=== PATIENT | male | born 1980 | race Caucasian/White ===

== ENCOUNTER 2022-09-19 03:22 | Emergency (ER) | payer MEDICAID, SELFPAY ==
[2022-09-19 03:25] VITALS: BP 130/88; PULSE 76; RESP 18; TEMP 36.6; O2SAT 96; BMI 29.0
[2022-09-19 04:10] LABS: Color, Urine Yellow (Yellow); Glucose, Dipstick Normal (Normal); Ketone-Dipstick Negative (Negative); Leukocyte Esterase-Dipstick Negative /ul (Negative); Mucous, Urine 0 SEEN /hpf (<or=2+); Nitrite-Dipstick Negative (Negative); Occult Blood-Urine Negative /ul (Negative); Protein-Dipstick Negative (Negative); Red Blood Cells-Urine 0 SEEN /hpf (0-5); Squamous Epithelial Cells - UA 0 SEEN /hpf (0-5); Urine Bilirubin Dipstick Negative (Negative); Urine Clarity Clear (Clear); Urine Urobilinogen Normal (Normal); White Blood Cells 0 SEEN /hpf (0-5)
[2022-09-19 04:22] LABS: Bacteria 1+ /hpf (None Seen)
--- NOTE | 2022-09-19 04:40 | EDS_ITS ---
HPI History of Present Illness Chief Complaint: Flank Pain Narrative Narrative: Patient is a 41-year-old male who presents with left-sided abdominal/flank pain that states is worse with motion. He states he was having intercourse and when he ejaculated he developed this pain. He states that he does have concern about an STD as he has had 1 in the past and this type of pain feels similar nature. He also states that he has remote history of kidney stone he is unsure that this pain could be secondary to it and therefore comes in for evaluation. [facility] Medical History (Updated 09/19/22 @ 04:[address] Wiliam Coleman, DO) Restless leg Home Medications methocarbamol 500 mg tablet 1,000 mg PO 4X/DAY PRN PRN Muscle pain/spasm #56 tabs 09/19/22 [Rx Last Taken Unknown] Allergy/AdvReac Type Severity Reaction Status Date / Time amoxicillin [From Augmentin] Allergy PT UNSURE Verified 09/19/22 03:27 OF REACTION clavulanic acid Allergy PT UNSURE Verified 09/19/22 03:27 [From Augmentin] OF REACTION codeine Allergy PT UNSURE Verified 09/19/22 03:27 OF REACTION Social History Smoking Status: Never smoker ROS ROS ED Constitutional Constitutional ED: Denies chills or fever(s) ENT ENT ED: Denies sore throat Cardiovascular Cardiovascular: Denies chest pain Respiratory/Chest Respiratory/Chest: Denies cough or dyspnea Gastrointestinal Gastrointestinal: Reports abdominal pain; Denies diarrhea, nausea or vomiting Genitourinary Genitourinary ED: Reports urinary frequency; Denies dysuria or hematuria Musculoskeletal Musculoskeletal: Reports back pain; Denies myalgias Integumentary Denies rash Neurologic Neurologic: Denies headache(s) Hematologic/Lymphatic Hematologic/Lymphatic: Denies easy bleeding or easy bruising EXAM Physical Exam Const Vital Signs: 09/19/22 03:25 Temperature 98 F Temperature Source Temporal Pulse Rate 76 Respiratory Rate 18 Blood Pressure 130/88 H Blood Pressure Mean 102 Pulse Ox 96 Oxygen Delivery Method Room Air Positive well nourished and well developed General Appearance ED: well developed Eyes PERRL and EOMs intact bilaterally Neck supple Resp normal respiratory effort and clear to auscultation bilaterally Cardio regular rate and regular rhythm Rate: other Other Details: Radial pulses are plus 2 out of 4 bilaterally are equal and symmetric GI non-distended GI Narrative: There is mild pain on palpation along the left lateral abdomen without voluntary guarding or rigidity Auscultation: normoactive bowel sounds Palpation: soft Narrative: No blood or discharge from the urethral meatus no soft tissue skin lesions no testicular masses or swelling and no secondary skin changes to suggest Mckenzie's gangrene Back/Spine no CVA tenderness Extremity normal to inspection Neuro oriented x3 and CN's II-XII intact bilaterally Sensorium / Orientation: alert Psych mental status grossly normal Skin no rashes or lesions noted MDM MDM MDM Narrative Medical decision making narrative: Patient presented to the ER with left-sided abdominal/flank pain that began after sexual intercourse. There was certain motions that did exacerbate the pain indicating this is most likely musculoskeletal and not a kidney stone especially as patient did not have CVA pain. He also had concern for an STD but there is no discharge or soft tissue skin changes to suggest this. A urine sample was obtained which did not show any blood going against kidney stone is 85% will have hematuria. Therefore I felt no need to CT scan the patient. As patient has concern for STD this sample will be sent for gonorrhea chlamydia and he will be treated at this time. However as work-up is indicating this is most likely musculoskeletal instead of kidney stone or STD or UTI or pyelonephritis he is otherwise safe for discharge History & Record Review Discussion w/independent historian: Patient Lab Data Attestation: I reviewed the patient's lab results. Labs: Laboratory Results - last 24 hr 09/19/22 04:05 Urine Color Yellow Urine Clarity Clear Urine pH 6.0 Ur Specific [place] 1.020 Urine Protein Negative Urine Glucose (UA) Normal Urine Ketones Negative Urine Occult Blood Negative Urine Nitrite Negative Urine Bilirubin Negative Urine Urobilinogen Normal Ur Leukocyte Esterase Negative Urine RBC 0 SEEN Urine WBC 0 SEEN Ur Squamous Epith Cells 0 SEEN Urine Bacteria 1+ Urine Mucus 0 SEEN Discharge Plan Triage Chief Complaint: Flank Pain ED Provider: Wiliam Coleman Dx/Rx/DC Orders Clinical Impression: Urinary frequency, Concern about STD in male without diagnosis, Abdominal wall strain Instructions: ED Muscle Strain, Abdomen, ED Testing for Suspected STI Prescriptions: New methocarbamol 500 mg tablet 1,000 mg PO 4X/DAY PRN PRN (Reason: Muscle pain/spasm) Qty: 56 0RF Stand Alone Forms: ED Work / School Excuse Primary Care Provider: Care Physician,No Primary Referrals: Care Physician,No Primary [Primary Care Provider] - Activity Restrictions/Additional Instructions: As you have concern for an STD based on your urinary frequency you have been treated with Rocephin and Zithromax which will cover for gonorrhea and chlamydia. You must withhold from sexual activity for the next 7 days to allow the infection to resolve. Your side pain is most likely musculoskeletal in nature and therefore take the muscle relaxer as directed to help control this. If you have any further concerns please return to the hospital for repeat evaluation Disposition Disposition: Home, Self Care Discharge Date/Time: 09/19/22 05:43
[2022-09-19] MEDS: Azithromycin 250 MG Tablet 1000 MG PO (04:57)
[2022-09-19] MEDS: Ceftriaxone 500 MG Vial IM (04:57)
[2022-09-19 07:07] LABS: Chlamydia Trachomatis by PCR Negative (Negative); Neisserai gonorrhoeae by PCR Negative (Negative); Probe Check PASS; Sample Adequacy Control PASS; Specimen Processing Control PASS
== END 2022-09-19 05:43 | disposition home or self-care (01) ==
PROVIDERS: Emergency Provider Emergency Medicine; Visit Provider Emergency Medicine
DX: R35.0 Frequency of micturition (principal); S39.011A Strain of muscle, fascia and tendon of abdomen, initial encounter; X58.XXXA Exposure to other specified factors, initial encounter
CPT/HCPCS: 81001; 87491; 87591; 96372; 99283